=== PATIENT | male | born 1930 | race Caucasian/White ===

== ENCOUNTER → 2017-01-30 | Outpatient (CLI) | payer MEDICARE, BC ==
--- NOTE | 2017-01-30 11:48 | KCIC ---
PROCEDURE Lumbar spine MRI without contrast. HISTORY Lower back pain and sciatica. TECHNIQUE Multiplanar and multi sequence magnetic resonance imaging of the lumbar spine was performed without contrast. COMPARISON None. FINDINGS There is levoscoliosis centered at L4-L5. There is grade 1 anterolisthesis of L4 on L5 and L5 on S1, measuring 2 mm and 3 mm, respectively. There is minimal retrolisthesis of L3 on L4. There is diffuse disc desiccation. There is degenerative endplate remodeling with disc space narrowing predominately along the right aspect of L4-L5. This corresponds with the level of maximum scoliotic concavity. There are few endplate Schmorl's nodes. There are few vertebral body hemangiomas. No suspicious osseous lesion is seen. The conus terminates at T12. At T11-T12, there is a suspected left foraminal annular tear superimposed on a disc bulge with right anterior lateral predominant disc osteophyte complex. There is mild facet arthropathy. There is mild bilateral foraminal stenosis. At T12-L1, there is a disc bulge and anterior endplate remodeling. There is mild facet arthropathy. There is no stenosis. At L1-L2, there is a shallow right paracentral disc protrusion superimposed on a disc bulge and left anterior predominant endplate osteophytosis. There is mild facet arthropathy. There is hypertrophy of the ligamentum flavum. There is mild bilateral foraminal stenosis. At L2-L3, there is a right paracentral to extra foraminal disc protrusion and annular tear with slight superior and inferior extrusion and a broad-based left paracentral to lateral disc protrusion. This is superimposed on a disc bulge with anterior annular tear and endplate osteophytosis. There is mild facet arthropathy. There is hypertrophy of the ligamentum flavum. There is mild to moderate right and mild left foraminal stenosis. There is mild central canal stenosis. At L3-L4, there is a right foraminal to lateral disc protrusion and osteophyte complex superimposed on a diffuse disc bulge and endplate remodeling. There is mild to moderate facet arthropathy. There is hypertrophy of the ligamentum flavum. There is moderate right and mild left foraminal stenosis. There is mild central canal stenosis and effacement of the right lateral recess. There is a suspected synovial cyst along the right spinous process measuring 7 mm. At L4-L5, there is a broad-based left paracentral to lateral recess disc protrusion with slight inferior extrusion and a right foraminal to extra foraminal disc protrusion with superior extrusion and annular tear superimposed on a disc bulge and right lateral predominant endplate osteophytosis. There is severe right and moderate left facet arthropathy. There is hypertrophy of the ligamentum flavum. There is severe right and mild left foraminal stenosis. There is mild central canal stenosis with effacement of the right greater than left lateral recess. There is a posterior right facet joint synovial cyst measuring 1.5 cm. At L5-S1, there is a left paracentral to foraminal disc protrusion superimposed on a disc bulge and endplate osteophytosis. There is mild left greater than right facet arthropathy. There is moderate left foraminal stenosis. IMPRESSION 1. 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 This results in mild bilateral foraminal stenosis T11-T12 and L1-L2, mild to moderate right and mild left foraminal and mild central canal stenosis at L2-L3, moderate right and mild left foraminal and mild central canal stenosis with effacement of the right lateral recess at L3-L4, severe right and mild left foraminal and mild central canal stenosis with effacement of the bilateral lateral recesses at L4-L5, and moderate left foraminal stenosis at L5-S1. 2. Lumbar scoliosis and multilevel listhesis, described above. Electronically signed by: Bharti Bedolla (Jan 30, 2017 11:47:15)
== END | disposition home or self-care (01) ==
LOC: KCIC MRI 10:30
PROVIDERS: ATTEND General Practice
DX: M47.895 Other spondylosis, thoracolumbar region (principal); M48.05 Spinal stenosis, thoracolumbar region; M41.86 Other forms of scoliosis, lumbar region
CPT/HCPCS: 72148

== ENCOUNTER → 2017-02-16 | Outpatient (CLI) | payer MEDICARE, BC ==
[~2017-02-16] MED LIST: ALLO300T PO; ATOR20TA58 PO; BYSTOLIC10 MG PO; CYAN10005 PO; GABA-586 PO; MULT-686 PO; NAPR220C4 PO; RIVA15TA PO
--- NOTE | 2017-02-17 05:12 | PAIN ---
DATE OF SERVICE: 02/16/2017 INITIAL CONSULTATION FOR PAIN CLINIC CHIEF COMPLAINT: Low back, bilateral lower extremity pain. HISTORY OF PRESENT ILLNESS: This is an 86-year-old male who presents with a history of pain for about 6 months, increasing gradually over time without the result of any specific injury or accident that he is aware of, but getting worse in the low back across the low back, bilateral lower extremities, mostly in the posterior lateral gluteus, also the lateral anterior thighs, lower legs and the posterior aspect of the feet, worse with standing and walking, sitting is better though. The patient reports it as a shooting, stabbing pain, throbbing with radiating pain in the bilateral lower extremities, again most ____ the backside and the lateral side of the thigh. The patient reports sitting is much better. When he is on his feet for more than about 20 minutes, the pain begins to get unbearable where he has to sit down, which relieves it after about 5 minutes. The patient reports it does not awaken him from sleep at night, feels much better lying down, does not affect his bowel or bladder control. Occasionally, he uses a cane to walk and it does affect his ability to ambulate fairly significantly. The patient has tried Aleve, which does not decrease the pain significantly. He has also had some epidural injections in the past at an outside facility about 5 years ago, which helped significantly. The patient did have an MRI scan recently showing multilevel degenerative changes throughout the lower thoracic and lumbar spine with mild bilateral foraminal stenosis at T11-T12, L1-L2, ____ moderate right and mild left foraminal and mild central canal stenosis at L2-L3, moderate right and mild left foraminal and mild central canal stenosis with effacement of the right lateral recess at L3-L4, severe right and mild left foraminal and mild central canal stenosis with effacement of the bilateral lateral recesses at L4-L5, moderate left foraminal stenosis at L5-S1. The patient rates his disability rating from 0-10, 10 being the worst, as a 7 with family and home responsibilities, recreation, social activity and occupation and 0 with all other categories. PAST MEDICAL HISTORY: Shows significant for shortness of breath, hard of hearing, borderline diabetes, cataracts, previous prostate surgery in the past, atrial fibrillation, arthritis, bilateral knee replacements. Other surgeries include cataract extraction, prostatectomy. CURRENT MEDICATIONS: Include multivitamins, B12, Aleve, Xarelto, gabapentin, atorvastatin, Bystolic and allopurinol. ALLERGIES: The patient has no known drug allergies. FAMILY HISTORY: Significant for diabetes. SOCIAL HISTORY: The patient does not drink alcohol, does not smoke. 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 REVIEW OF SYSTEMS: Positive for those items mentioned in history of present illness. All systems reviewed and otherwise negative. It is complete, full and well documented on the patient's chart. PHYSICAL EXAMINATION: VITAL SIGNS: The patient's blood pressure is 144/97, pulse 73, respirations are 18, temperature 97.9 degrees Fahrenheit. Height is 6 feet 3 inches, weight is 236 pounds. GENERAL: The patient is awake, alert, oriented, appropriate, has a very pleasant demeanor. The patient is accompanied by his spouse and his daughter. HEENT: Shows normocephalic, atraumatic. Extraocular movements are intact and symmetrical. Oral cavity, his mucous membranes are moist and pink. Dentition is intact. NECK: Shows anterior throat supple without palpable lymphadenopathy noted. Swallow reflex is symmetrical. Neck shows full rotational motion of the cervical spine without significant difficulty or tenderness including extension and flexion. CHEST: Shows normal on inspection. Breath sounds are clear to auscultation bilaterally. HEART: Shows S1 and S2 clear. No murmurs are auscultated. ABDOMEN: Soft, nontender, nondistended. No palpable organomegaly is noted. No rebound or guarding demonstrated. BACK: Shows spine grossly in the midline. Normal appearing thoracic kyphosis and lumbar lordotic curvature. No previous bruises, lesions, rashes or scars are noted. The patient has some mild pigment and discoloration in the very low lumbar distribution of the skin only, but no raised lesions or rashes or other abnormalities are noted. With palpation, shows moderate tenderness with palpation in the middle and lower distribution of the paraspinous muscles bilaterally, but only diffusely. No tenderness over the spinous processes themselves. No tenderness over the sacrum and sacroiliac regions. The patient shows good rotational motion of the lumbar spine, both laterally greater than 10 degrees right and left as well as full extension greater than 10 degrees, full forward flexion greater than 45 degrees without significant difficulty as well. The patient's lower extremities show deep tendon reflexes 1+ in the patellar and tendo calcaneus tendons. The patient has well-healed surgical scars over both knees. Motor exam is approximately 4 on a scale of 5, but symmetrical with dorsiflexion, extension, quadriceps and hamstring flexion and is equal in strength. Peripheral pulses are 1+ posterior tibial and dorsalis pedis pulses. The patient has about 1+ pitting edema in the bilateral ankles, significant to about 1/3 distance of the knee on the tibia bilaterally, which is pitting, but nontender. No other discolorations, other abnormalities or asymmetries are noted in the lower extremities. The patient's straight leg raise noted to be positive bilaterally at about 40 degrees with pain in the posterior gluteus, posterior lateral thigh, decreased with knee flexion, but not relieved with knee flexion. Gaenslen's and Oscar's maneuvers are grossly negative bilaterally. The patient is able to stand, has some difficulty standing from a sitting position, needs help with the arms of the chair. Once he is up, he has difficulty trying to stand on his toes and he loses balance very easily. Again, the patient with a slight shuffling gait, using a cane in his right hand on ambulation today. IMPRESSION: 1. This is an 86-year-old male with a long history of low back pain, bilateral lower extremity pain in a radicular fashion. 2. MRI scan as noted. 3. History of arthritis. 4. Atrial fibrillation, on Xarelto. PLAN: Options were discussed with the patient and the patient's family including conservative medical management, physical therapies, interventional techniques. He would like to pursue interventional techniques as he has done very well with these in the past. We discussed a lumbar epidural steroid injection using description as well as anatomical models to describe the procedure. 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 He would like to pursue this if deemed safe and appropriate to be off his Xarelto. We will have him return once this is cleared and proceed with lumbar epidural steroid injection at that time. YESIKA HOLT MD DR: JOSE/сергей JOB#: [id number] / [id number]
== END | disposition home or self-care (01) ==
LOC: PNCL 10:11
PROVIDERS: ATTEND Anesthesiology
DX: M54.9 Dorsalgia, unspecified (principal); M79.605 Pain in left leg; M79.604 Pain in right leg
CPT/HCPCS: 99214

== ENCOUNTER → 2017-02-18 | Outpatient (CLI) | payer MEDICARE, BC ==
[~2017-02-18] MED LIST changes: +IOHEXOL 180 MG/ML 10 ML VIAL. ONE; +methylPREDNISolone ACETATE 40 MG/ML VIAL. ONE; +methylPREDNISolone ACETATE 80 MG/ML VIAL. ONE
--- NOTE | 2017-02-19 05:20 | PAIN ---
DATE OF SERVICE: 02/18/2017 PROGRESS NOTE FOR PAIN CLINIC DIAGNOSES: Lumbar radiculopathy with lumbar degenerative disk disease and lumbar spinal stenosis. HISTORY OF PRESENT ILLNESS: This is an 86-year-old male who returns for followup status post initial evaluation and preauthorization to hold his Xarelto. He has been off of this now for 5 days and returns for lumbar epidural steroid injection today. The patient reports still significant pain in the low back, bilateral lower extremities versus on his feet, standing and walking again present for about the past 6 months or so. The patient reports no new motor or sensory deficits, no new bowel or bladder incontinence or other complaints. The patient rates his pain as a 4 on a scale of 10 today. PHYSICAL EXAMINATION: VITAL SIGNS: The patient's blood pressure is 155/92, pulse 71, respirations 18, temperature is 98.0 degrees Fahrenheit. Height is 6 feet 3 inches, weighs 236 pounds. GENERAL: The patient is awake, alert, oriented, appropriate, very pleasant demeanor. HEENT: Head shows normocephalic, atraumatic. Extraocular movements are intact and symmetrical. Oral cavity shows mucous membranes moist and pink. Dentition is intact. NECK: Shows anterior throat supple. CHEST: Shows normal on inspection. Breath sounds clear to auscultation bilaterally. HEART: Shows S1 and S2 clear. ABDOMEN: Soft, nontender, nondistended. BACK: Shows spine grossly in midline. Lumbar paraspinous muscle shows some moderate tenderness with palpation bilaterally, again on inspection, there is some minor hyperpigmentation and discoloration with no rashes, bruises, or lesions noted is nontender. No tenderness over the sacrum or sacroiliac regions. EXTREMITIES: Lower extremities showed deep tendon reflexes at 1+ in the patellar and tendo calcaneus tendons. Motor exam is strong with approximately 4 on a scale of 5, but equal dorsiflexion, extension, quadriceps and hamstring flexion. Options were discussed with the patient and the patient's old chart was reviewed as his current medication regimen updated. Current review of systems was updated today. We will proceed with a lumbar epidural steroid injection today with fluoroscopic guidance. Risks were again discussed including, but not limited to bleeding, infection, possibility of epidural hematoma, subsequent neurologic compromise, dural puncture, headaches, spinal cord and/or nerve damage, side effects of steroid medication and poor results regarding pain control. The patient understands and wishes to proceed. The patient will return to clinic in approximately 2 weeks for followup, was counseled on return appointment, activity level and side effects to be aware of. DIAGNOSES: Lumbar radiculopathy with lumbar degenerative disk disease and lumbar spinal stenosis. PROCEDURE: Lumbar epidural steroid injection in translaminar approach at L4-L5 level using C-arm fluoroscopic guidance under sterile prep and drape using local anesthetic. MEDICATION INJECTED: 120 mg of Depo-Medrol plus 10 mL preservative-free normal saline and 2 mL of Isovue for contrast. CONDITION AT DISCHARGE: Stable. The patient tolerated the procedure well, had no complications. YESIKA HOLT MD DR: JOSE/сергей JOB#: [id number] / [id number]
== END | disposition home or self-care (01) ==
LOC: PNCL 10:55
PROVIDERS: ATTEND Anesthesiology
DX: M51.16 Intervertebral disc disorders with radiculopathy, lumbar region (principal); M48.06 Spinal stenosis, lumbar region
CPT/HCPCS: 62323; J1030; J1040

== ENCOUNTER → 2018-04-06 | Outpatient (CLI) | payer MEDICARE ==
[~2018-04-06] MED LIST changes: -ALLO300T PO; -ATOR20TA58 PO; -BYSTOLIC10 MG PO; -CYAN10005 PO; -GABA-586 PO; +IOHEXOL 180 MG/ML 10 ML VIAL.; -IOHEXOL 180 MG/ML 10 ML VIAL. ONE; -MULT-686 PO; -NAPR220C4 PO; -RIVA15TA PO; +methylPREDNISolone ACETATE 40 MG/ML VIAL.; -methylPREDNISolone ACETATE 40 MG/ML VIAL. ONE; +methylPREDNISolone ACETATE 80 MG/ML VIAL.; -methylPREDNISolone ACETATE 80 MG/ML VIAL. ONE
== END | disposition home or self-care (01) ==
LOC: PNCL 09:47
DX: M51.16 Intervertebral disc disorders with radiculopathy, lumbar region (principal); M48.061 Spinal stenosis, lumbar region without neurogenic claudication
CPT/HCPCS: 62323; J1030; J1040; Q9965